=== PATIENT | female | born 1965 | race Caucasian/White ===

== ENCOUNTER 2018-05-25 17:14 | Emergency (ER) | payer OTHER, MEDICARE ==
[2018-05-25 17:43] VITALS: BP 139/73
[2018-05-25 18:13] LABS: BASOPHILS % 0.4 (0.0-1.5); EOSINOPHILS % 2.6 % (0.0-6.8); MEAN CORPUSCULAR HEMOGLOBIN 29.6 pg (28.0-34.0); MEAN CORPUSCULAR VOLUME 88.3 fl (80.0-100.0); MONOCYTES % 6.1 % (0.0-11.0); NEUTROPHILS # 3.3 # k/uL (1.4-7.7)
--- NOTE | 2018-05-25 18:18 | ED Physician Documentation ---
Altered Mental Status - HISTORIAN Historian: patient, spouse, other (cousin) - HPI Stated Complaint: Hyperglycemia Chief Complaint: Altered Mental Status Additional Information: pt here via ems after reported l;aw enforcement called stating pt created scene at home that she was schizophrenic - also fsbs reveals bs = 394. pt is alert coooperative but hesitant to answer our questions. her arrived later and left to visit w/pt- he later stated and confirmed whaat she had said that they lived in [place] under care pcp and psychologists- that the psy was aware of new condition since she went off her psyche and diabetes meds-husb and says she was unchanged and that the psy says not qualified admisssion w/.o consent and that she did not give permission for admission. she earlier stated she wanted to go home refusing admission. other family arrived later visiting w / pt until lab returns Onset: other (upset onset this pm at home and at cousins house. she used to live here and has family here and had gone to home to check she also stated she had gone koff diab on family member-she had home pamphlet re recent in her posession. ) Duration: gradual onset (last refill meds insulin refilled may 09 and no refill psyche meds since february 2018. this compares w/ what both and pt states. pt and family in room laughing and talking w/o apparent stress.) Last known Well Date: 05/25/18 Last Known Well Time: 18:43 Last known Well Code/Unknown Code: Unknown (dates vague ie years ago but chart will not close unless above answered withsomething) Character of Altered Mental Status: trouble concentrating (slightly slow in answering questions.). denies: disoriented, confused, combative, agitated, decreased responsiveness Context: none Cognition is Usually: alert, oriented x3, disoriented (time) Associated Symptoms: none Further Comments: yes (awaiting labs) - ROS EYES/ENT: none CVS/RESP: none GI/: none MS/SKIN/LYMPH: none NEURO/PSYCH: anxiety, other (pt admits schizophrenia and diabetes) - PAST HX Past History: diabetes Type 1, schizophrenia Other History: none Surgeries/Procedures: cholecysectomy, other () Allergies/Adverse Reactions: Allergies Allergy/AdvReac Type Severity Reaction Status Date / Time oxymetazoline Allergy Verified 05/25/18 18:22 [From Afrin (oxymetazoline)] rivaroxaban [From Xarelto] Allergy Verified 05/25/18 18:22 Home Medications: Ambulatory Orders Medication Instructions Recorded NK [NK] 05/25/18 - SOCIAL HX Smoking History: non-smoker Alcohol Use: rarely Drug Use: none - FAMILY HX Family History: no significant history - VITAL SIGNS Vital Signs: Vital Signs Temp Pulse Resp BP Pulse Ox 98.6 F 97 H 18 139/73 97 05/25/18 17:14 05/25/18 17:14 05/25/18 17:14 05/25/18 17:14 05/25/18 17:14 - REVIEWED ASSESSMENTS Nursing Assessment Reviewed: Yes Vitals Reviewed: Yes ED Results Lab/Radiology - Orders Orders: ED Orders Category Date Time Status Place IV Lock 1T Care 05/25/18 17:52 Active CBC/PLATELET/DIFF Stat Lab 05/25/18 17:50 Received CMP Stat Lab 05/25/18 17:50 Received Altered Mental Status Physical - Physical Exam General Appearance: mild distress, anxious Neuro/Psych: anxiety alert, oriented x3, no evidence of acute CVA. No: mood/affect nml (but states new baseline since off meds) No: facial palsy, forehead involved, tongue deviation (R), tongue deviation (L) Cerebellar Exam: No: abnml gait Peripheral Exam: motor nml, sensation nml HEENT: no apparent trauma Neck: normal inspection, thyroid normal. No: lymphadenopathy, stiff neck, carotid bruit Respiratory: no resp distress, chest non-tender, breath sounds normal CVS: reg rate & rhythm, heart sounds normal Abdomen: non-tender Skin: warm/dry, normal color. No: cyanosis, diaphoresis, jaundice Extremities: non-tender, normal range of motion, no evidence of injury Discharge Clincal Impression: uncont diabetes, schizophrenia, meds noncompliant Referrals: Primary Doctor,No [Primary Care Provider] - 2 Days Comments: t states in front of and family she will see her dr's soon get back on meds. still agrees to take her home and asst w/ compliance Condition: Good Disposition: 01 HOME, SELF-CARE Decision to Admit: NO Decision Time: 18:41
[2018-05-25 18:24] LABS: eGFR (African) > 60; eGFR (Non-African) > 60
[2018-05-25] MEDS ORDERED: INSULIN NPH/REG 100 UNIT/ML 3ML VIAL SQ STA (18:36)
[2018-05-25] MEDS ORDERED: INSULIN REGULAR, HUMAN 100 UNIT/ML 3ML VIAL SQ ONE (18:52)
== END 2018-05-25 19:01 | disposition home or self-care (01) ==
LOC: ED 17:14
DX: E11.65 Type 2 diabetes mellitus with hyperglycemia (principal); F20.9 Schizophrenia, unspecified; Z91.14 Patient's other noncompliance with medication regimen
CPT/HCPCS: 80053; 85025; 96372